=== PATIENT | female | born 1995 | race Asian ===

== ENCOUNTER 2023-06-03 23:32 | Emergency (ER) | payer SELFPAY ==
[~2023-06-03] VITALS: Ht 149.9 cm; Wt 51.3 kg
[2023-06-03 23:47] VITALS: BP 122/65; TEMP 99; O2SAT 97
--- NOTE | 2023-06-03 23:50 | NUR ---
BIBS FOR L EAR DISCOMFORT AND HARD OF HEARING
--- NOTE | 2023-06-04 00:15 | NUR ---
EMT AT BEDSIDE IRRIGATING L EAR WITH SALINE
--- NOTE | 2023-06-04 01:17 | NUR ---
Patient discharged to home in stable condition. Written and verbal after care instructions given. Patient verbalizes understanding of instruction.
== END 2023-06-04 01:17 | disposition home or self-care (01) ==
LOC: ER 23:39
DX: H61.22 Impacted cerumen, left ear (principal); Z88.8 Allergy status to other drugs, medicaments and biological substances